=== PATIENT | male | born 1995 | race African-American/Black ===

== ENCOUNTER 2019-12-19 14:02 | Emergency (ER) | payer OTHER ==
[~2019-12-19] VITALS: Ht 165.1 cm; Wt 74.8 kg
[2019-12-19 14:08] VITALS: BP 136/78; TEMP 98
== END 2019-12-19 15:00 | disposition home or self-care (01) ==
LOC: ED 14:02
DX: L27.2 Dermatitis due to ingested food (principal)
CPT/HCPCS: 96372; 99283; J1200; J2930

== ENCOUNTER 2020-06-30 09:37 | Observation (INO) | payer OTHER ==
[~2020-06-30] VITALS: Ht 165.1 cm; Wt 82.8 kg
[2020-06-30 12:00] VITALS: BP 134/77; TEMP 98.7
[2020-06-30 12:01] VITALS: BP 134/77; TEMP 98.7; Ht 165.1 cm; Wt 82.8 kg
[2020-06-30 13:07] LABS: PLATELET COUNT 416 K/uL (142-355)
[2020-06-30 13:14] LABS: POTASSIUM 4.4 mmol/L (3.6-5.2)
[2020-06-30 15:45] VITALS: BP 116/72; TEMP 97.6
[2020-06-30 20:00] VITALS: BP 119/64; TEMP 98.1
[2020-07-01] VITALS: BP 114/63; TEMP 97.8
[2020-07-01 04:00] VITALS: BP 100/49; TEMP 97.9
[2020-07-01 08:00] VITALS: BP 113/62; TEMP 97.9
[2020-07-01 12:00] VITALS: BP 120/61; TEMP 97.7
[2020-07-01 13:44] LABS: PLATELET COUNT 397 K/uL (142-355)
[2020-07-01 13:57] LABS: POTASSIUM 3.9 mmol/L (3.6-5.2)
[2020-07-01 16:00] VITALS: BP 131/76; TEMP 97.6
[2020-07-01 20:00] VITALS: BP 113/56; TEMP 98.5
[2020-07-02] VITALS: BP 109/62; TEMP 98.2
[2020-07-02 04:00] VITALS: BP 111/58; TEMP 98.1
[2020-07-02 05:25] LABS: PLATELET COUNT 394 K/uL (142-355)
[2020-07-02 06:01] LABS: POTASSIUM 4.5 mmol/L (3.6-5.2)
[2020-07-02 08:00] VITALS: BP 107/42; TEMP 97.9
== END 2020-07-02 14:35 | disposition home or self-care (01) ==
LOC: MED/SURG 09:37
PROVIDERS: ADMIT Family Medicine; ATTEND Family Medicine
DX: R21 Rash and other nonspecific skin eruption (principal); R59.0 Localized enlarged lymph nodes; T50.905A Adverse effect of unspecified drugs, medicaments and biological substances, initial encounter; L50.8 Other urticaria; F41.8 Other specified anxiety disorders
CPT/HCPCS: 36415; 80048; 80053; 80074; 82306; 82607; 82728; 83735; 84100; 84443; 85027; 86140; 87040; 87101; 87635; 96374; 96375; 99220; G0378; G0379; J2930; U0003

== ENCOUNTER 2022-05-07 12:41 | Outpatient (CLI) | payer OTHER ==
[2022-05-07 13:09] LABS: PLATELET COUNT 320 K/uL (142-355)
[2022-05-07 13:18] LABS: POTASSIUM 4.2 mmol/L (3.6-5.2); SODIUM 140 mmol/L (136-145)
== END 2022-05-07 19:37 | disposition home or self-care (01) ==
LOC: RESP 12:41
PROVIDERS: ATTEND Nurse Practitioner Family
DX: R42 Dizziness and giddiness (principal)
CPT/HCPCS: 36415; 80053; 81002; 82550; 82553; 84484; 85027; 93005